=== PATIENT | female | born 1995 | race Caucasian/White ===

== ENCOUNTER 2021-03-19 13:25 | Outpatient (CLI) | payer BC, MEDICAID, SELFPAY ==
[2021-03-19 13:48] VITALS: TEMP 37.2
[2021-03-19 13:49] VITALS: BP 120/68; PULSE 99
[2021-03-19 14:09] VITALS: BP 107/76; PULSE 96
[2021-03-19 14:10] VITALS: BMI 33.7
== END 2021-03-19 14:25 | disposition home or self-care (01) ==
LOC: OPOB 13:42 → OBGYN 13:42
PROVIDERS: PCP Nurse Practitioner Family; Visit Provider Family Medicine
DX: O30.099 Twin pregnancy, unable to determine number of placenta and number of amniotic sacs, unspecified trimester (principal); Z3A.00 Weeks of gestation of pregnancy not specified; O16.9 Unspecified maternal hypertension, unspecified trimester
CPT/HCPCS: 59025; 99211

== ENCOUNTER 2021-03-22 20:50 | Outpatient (CLI) | payer BC, MEDICAID, SELFPAY ==
[2021-03-22] VITALS (16 sets, daily range): BP systolic 118–119; BP diastolic 76–83; PULSE 94–100; RESP 15–16; TEMP 36.7–36.9; O2SAT 94–97; BMI 33.5
== END 2021-03-22 22:45 | disposition home or self-care (01) ==
LOC: OPOB 20:51 → OBGYN 20:51
PROVIDERS: PCP Nurse Practitioner Family; Visit Provider Family Medicine
DX: O26.899 Other specified pregnancy related conditions, unspecified trimester (principal); Z3A.00 Weeks of gestation of pregnancy not specified; R10.9 Unspecified abdominal pain; O16.9 Unspecified maternal hypertension, unspecified trimester
CPT/HCPCS: 59025; 99211

== ENCOUNTER 2021-03-26 08:45 | Outpatient (CLI) | payer BC, MEDICAID, SELFPAY ==
[2021-03-26 08:52] VITALS: BP 141/94; PULSE 101
[2021-03-26 09:11] VITALS: BP 126/86; PULSE 90
[2021-03-26 09:26] VITALS: BP 125/83; PULSE 95
[2021-03-26 10:52] VITALS: BMI 34.0
[2021-03-26 11:07] VITALS: BP 125/83; PULSE 95; RESP 18
== END 2021-03-26 09:30 | disposition home or self-care (01) ==
LOC: OPOB 08:47 → OBGYN 08:49
PROVIDERS: PCP Nurse Practitioner Family; Visit Provider Family Medicine
DX: O30.099 Twin pregnancy, unable to determine number of placenta and number of amniotic sacs, unspecified trimester (principal); Z3A.00 Weeks of gestation of pregnancy not specified
CPT/HCPCS: 59025

== ENCOUNTER 2021-04-02 11:44 | Outpatient (CLI) | payer BC, MEDICAID, SELFPAY ==
[2021-04-02 12:10] VITALS: BP 122/82; PULSE 96
[2021-04-02 12:26] VITALS: RESP 16
[2021-04-02 12:31] VITALS: BMI 34.0
[2021-04-02 12:38] VITALS: BP 115/77; PULSE 97
== END 2021-04-02 12:46 | disposition home or self-care (01) ==
LOC: OPOB 11:53 → OBGYN 11:56
PROVIDERS: PCP Nurse Practitioner Family; Visit Provider Family Medicine
DX: O16.9 Unspecified maternal hypertension, unspecified trimester (principal); O30.099 Twin pregnancy, unable to determine number of placenta and number of amniotic sacs, unspecified trimester; Z3A.00 Weeks of gestation of pregnancy not specified
CPT/HCPCS: 59025; 99211

== ENCOUNTER 2021-04-09 11:04 | Outpatient (CLI) | payer BC, MEDICAID, SELFPAY ==
[2021-04-09 11:14] VITALS: RESP 18
[2021-04-09 11:15] VITALS: BMI 34.5
[2021-04-09 11:21] VITALS: BP 131/98; PULSE 89
[2021-04-09 11:24] VITALS: TEMP 36.4
[2021-04-09 11:40] VITALS: BP 135/94; PULSE 91
[2021-04-09 11:54] VITALS: BP 135/83; PULSE 89
[2021-04-09 11:56] VITALS: BP 135/83; PULSE 89; RESP 18
== END 2021-04-09 11:57 | disposition home or self-care (01) ==
LOC: OPOB 11:06 → OBGYN 11:07
PROVIDERS: PCP Nurse Practitioner Family; Visit Provider Family Medicine
DX: O30.099 Twin pregnancy, unable to determine number of placenta and number of amniotic sacs, unspecified trimester (principal); Z3A.00 Weeks of gestation of pregnancy not specified
CPT/HCPCS: 59025

== ENCOUNTER 2021-04-13 15:08 | Outpatient (CLI) | payer BC, MEDICAID, SELFPAY ==
[2021-04-13 15:10] VITALS: BMI 34.9
[2021-04-13 15:18] VITALS: RESP 16
[2021-04-13 15:22] VITALS: BP 143/94; PULSE 102; TEMP 36.8
[2021-04-13 15:34] VITALS: BP 136/91; PULSE 103
[2021-04-13 16:43] LABS: Urine Creatinine 30 mg/dL (28-217); Urine Protein Random 8 mg/dL
[2021-04-13 16:45] LABS: UPRO/UCREAT Ratio 0.27 mg/mg CR
== END 2021-04-13 15:48 | disposition home or self-care (01) ==
LOC: OPOB 15:10 → OBGYN 15:12
PROVIDERS: PCP Nurse Practitioner Family; Visit Provider Family Medicine
DX: O16.9 Unspecified maternal hypertension, unspecified trimester (principal); Z3A.00 Weeks of gestation of pregnancy not specified
CPT/HCPCS: 59025; 82570; 84156; 99211

== ENCOUNTER 2021-04-16 11:35 | Outpatient (CLI) | payer BC, MEDICAID, SELFPAY ==
[2021-04-16 11:47] VITALS: BP 123/79; PULSE 102; TEMP 36.9
[2021-04-16 12:01] VITALS: BMI 35.2
[2021-04-16 12:02] VITALS: BP 118/77; PULSE 100
== END 2021-04-16 12:15 | disposition home or self-care (01) ==
LOC: OPOB 11:39 → OBGYN 11:40
PROVIDERS: PCP Nurse Practitioner Family; Visit Provider Family Medicine
DX: O30.099 Twin pregnancy, unable to determine number of placenta and number of amniotic sacs, unspecified trimester (principal); Z3A.00 Weeks of gestation of pregnancy not specified; O16.9 Unspecified maternal hypertension, unspecified trimester
CPT/HCPCS: 59025

== ENCOUNTER 2021-04-23 10:56 | Outpatient (CLI) | payer BC, MEDICAID, SELFPAY ==
[2021-04-23 11:00] VITALS: RESP 18; TEMP 36.9
[2021-04-23 11:20] VITALS: BP 138/87; PULSE 84
[2021-04-23 11:35] VITALS: BP 147/96; PULSE 81
[2021-04-23 11:40] VITALS: BP 144/92; PULSE 76
[2021-04-23 12:29] VITALS: BMI 35.2
[2021-04-23 12:43] VITALS: BP 144/92; PULSE 76; RESP 18; TEMP 36.9
== END 2021-04-23 11:45 | disposition home or self-care (01) ==
LOC: OPOB 11:08 → OBGYN 11:09
PROVIDERS: PCP Family Medicine; Visit Provider Family Medicine
DX: O30.099 Twin pregnancy, unable to determine number of placenta and number of amniotic sacs, unspecified trimester (principal); Z3A.00 Weeks of gestation of pregnancy not specified
CPT/HCPCS: 59025; 99211

== ENCOUNTER 2021-04-24 06:05 | Inpatient (IN) | payer BC, MEDICAID, SELFPAY ==
[2021-04-24] VITALS (88 sets, daily range): BP systolic 114–184; BP diastolic 64–112; PULSE 52–90; RESP 15–18; TEMP 35.8–37.4; O2SAT 94–99; BMI 35.2
[2021-04-24] MEDS: morphine 4 mg/mL SDV 1 mL 2 MG IVP (05:29)
[2021-04-24] MEDS: ondansetron 2 mg/ML SDV 2 mL 4 MG IVP ×3 (05:30→21:38)
[2021-04-24 05:31] LABS: Basophils # 0.1 10^3/uL (0.0-0.1); Basophils % 0.9 %; Eosinophils # 0.3 10^3/uL (0.0-0.8); Eosinophils % 2.6 %; Hematocrit 33.4 % (37.0-47.0); Hemoglobin 11.3 g/dL (11.5-15.3); Lymphocytes # 2.9 10^3/uL (0.8-4.8); Lymphocytes % 25.1 %; Mean Corpuscular HGB Conc 33.8 g/dL (30.0-36.0); Mean Corpuscular Hemoglobin 31.4 pg (28.0-34.0); Mean Corpuscular Volume 92.8 fL (81-99); Mean Platelet Volume 9.5 fL (7.4-10.4); Monocytes # 0.7 10^3/uL (0.2-0.9); Monocytes % 6.4 %; Neutrophils # 7.28 10^3/uL (1.8-7.7); Neutrophils % 63.4 %; Nucleated Red Blood Cells % 0.2 %; Platelet Count 276 10^3/cmm (130-400); Red Cell Distribution Width 13.6 % (12.1-15.1); White Blood Count 11.5 10^3/uL (4.0-10.0)
[2021-04-24 05:33] LABS: Add Urine Microscopic? YES; Bilirubin Urine Neg (Negative); Blood Urine Neg (Negative); Glucose Urine UA Norm (Normal); Ketones Urine Negative (Negative); Leukocyte Esterase Urine 2+ (Negative); Nitrate Urine Negative (Negative); Protein Urine Neg (Negative); Sulfosalicylic Acid Urine Negative (Negative); Urine Color Yellow (Yellow); Urobilinogen Urine Norm (Negative); pH Urine 8 (5-7)
[2021-04-24 05:34] LABS: Bacteria Urine 3+ /hpf; Mucus Urine 1+ /hpf; RBC Urine 0-4 /hpf (0-2); Squamous Epithelial Cell Urine 25-40 /hpf (0-5); WBC Urine >100 /hpf (0-5)
[2021-04-24 05:35] LABS: Add Urine Culture? No
[2021-04-24 05:50] LABS: Urine Creatinine 36 mg/dL (28-217); Urine Protein Random 7 mg/dL
[2021-04-24 05:51] LABS: Alanine Aminotransferase 9 U/L (0-33); Albumin Level 3.3 g/dL (3.5-5.2); Alkaline Phosphatase 204 IU/L (35-105); Anion Gap 15.5 (5-19); Aspartate Amino Transferase 19 U/L (0-32); Blood Urea Nitrogen 4 mg/dL (6-20); Calcium 9.1 mg/dL (8.5-10.5); Carbon Dioxide 20 mmol/L (22-29); Chloride 103 mmol/L (98-107); Globulin 2.1 g/dL (1.3-4.6); Glomerular Filtration Rate 150.3 mL/min (90-130); Glucose 76 mg/dL (65-115); Osmolality Calculated 276 mOsm/kg (285-295); Potassium 3.5 mmol/L (3.5-5.1); Sodium 135 mmol/L (136-145); Total Bilirubin 0.5 mg/dL (0.15-1.2); Total Protein 5.4 g/dL (6.6-8.7)
[2021-04-24 05:53] LABS: UPRO/UCREAT Ratio 0.19 mg/mg CR
[2021-04-24] MEDS: hyDRALAzine 20 mg/mL INJ 1 mL 5 MG IVP (06:30)
[2021-04-24] MEDS: lactated ringers 1,000 ML 999 ML IV (06:44)
--- NOTE | 2021-04-24 08:58 | ANES.PAUD2 ---
Pre-Anesthetic Update Pre-Anesthetic Assessment: Date of Surgery/Procedure: 04/24/21 Preop Diagnosis: IUP Proposed Procedure: Operation Date: 04/24/21 08:20 Proposed Procedures p Section(Not Applicable) - Kim Fox MD Any changes to Pre-Anesthetic Assessment?: No Labs Last 48hrs: Laboratory Results - last 48 hr 04/24/21 04/24/21 04/24/21 05:10 05:10 05:20 WBC 11.5 H RBC 3.60 L Hgb 11.3 L Hct 33.4 L MCV 92.8 MCH 31.4 MCHC 33.8 RDW 13.6 Plt Count 276 MPV 9.5 Neut % (Auto) 63.4 Lymph % (Auto) 25.1 [place] % (Auto) 6.4 Eos % (Auto) 2.6 Baso % (Auto) 0.9 Neut # (Auto) 7.28 Lymph # (Auto) 2.9 [place] # (Auto) 0.7 Eos # (Auto) 0.3 Baso # (Auto) 0.1 Nucleated RBC % (a uto) 0.2 Nucleated RBCs # 0.0 Sodium Potassium Chloride Carbon Dioxide Anion Gap BUN Creatinine GFR Calculation Glucose Calculated Osmolal ity Uric Acid Calcium Total Bilirubin AST ALT Alkaline Phosphata se Total Protein Albumin Globulin Urine Color Yellow Urine Appearance Sl cloudy A Urine pH 8 H Ur Specific Gravit y 1.010 Urine Protein Neg Urine Glucose (UA) Norm Urine Ketones Negative Urine Blood Neg Urine Nitrate Negative Urine Bilirubin Neg Prot Sulfosalicyli c Acd Negative Urine Urobilinogen Norm Ur Leukocyte Sarah ase 2+ H Urine RBC 0-4 H Urine WBC >100 H Ur Squamous Epith Cells 25-40 H Amorphous Sediment Not Reportable Urine Bacteria 3+ H Urine Mucus 1+ U Random Total Pro tein 7 Urine Creatinine 36 Protein/Creatinin Ratio 0.19 04/24/21 05:20 WBC RBC Hgb Hct MCV MCH MCHC RDW Plt Count MPV Neut % (Auto) Lymph % (Auto) [place] % (Auto) Eos % (Auto) Baso % (Auto) Neut # (Auto) Lymph # (Auto) [place] # (Auto) Eos # (Auto) Baso # (Auto) Nucleated RBC % (a uto) Nucleated RBCs # Sodium 135 L Potassium 3.5 Chloride 103 Carbon Dioxide 20 L Anion Gap 15.5 BUN 4 L Creatinine 0.5 GFR Calculation 150.3 H Glucose 76 Calculated Osmolal ity 276 L Uric Acid 6.0 H Calcium 9.1 Total Bilirubin 0.5 AST 19 ALT 9 Alkaline Phosphata se 204 H Total Protein 5.4 L Albumin 3.3 L Globulin 2.1 Urine Color Urine Appearance Urine pH Ur Specific Gravit y Urine Protein Urine Glucose (UA) Urine Ketones Urine Blood Urine Nitrate Urine Bilirubin Prot Sulfosalicyli c Acd Urine Urobilinogen Ur Leukocyte Sarah ase Urine RBC Urine WBC Ur Squamous Epith Cells Amorphous Sediment Urine Bacteria Urine Mucus U Random Total Pro tein Urine Creatinine Protein/Creatinin Ratio Vitals: Temperature 97.7 F 04/24/21 06:39 Pulse Rate 84 04/24/21 08:49 Pulse Rhythm 04/24/21 06:25 Pulse Strength 3+ Normal 04/24/21 06:25 Respiratory Rate 15 04/24/21 06:03 Respiratory Effort Non-Labored 04/24/21 06:25 Respiratory Depth Normal 04/24/21 06:25 Respiratory Patter n 04/24/21 06:25 Blood Pressure 140/79 04/24/21 08:49 Oxygen Delivery Me thod 04/24/21 06:25 Exam: Pre-Anes Outpt Exam: alert, oriented x 3, clear to auscultation bilaterally and regular rate & rhythm Cardiac Studies: No Data to Display
[2021-04-24] MEDS: famotidine 20 mg/2 mL INJ IVP (08:59)
[2021-04-24] MEDS: metoclopramide 5 mg/mL SDV 2 mL 10 MG IVP (08:59)
[2021-04-24] MEDS: citric acid-sodium citrate 30 mL UDC PO (08:59)
[2021-04-24] MEDS: lactated ringers 1,000 ML 125 ML IV (09:00)
[2021-04-24] MEDS: carboprost tromethamine 250 mcg/mL Amp IM (11:01)
[2021-04-24] MEDS: miSOPROStol 200 mcg Tablet 800 MCG PR (11:03)
--- NOTE | 2021-04-24 11:41 | PM.OP ---
Operative Report Date of procedure: April 24, 2021 Pre-op Diagnosis: Preeclampsia, severe Post-op diagnosis: same Procedure Done: Primary low transverse section Via Pfannenstiel skin incision Specimens removed/disposition: Twin A vertex female , weight 2820 g, 6 pounds 3-1/2 ounces, Apgars 8 and 9. Twin B complete breech female infant, weight 2435 g, 5 pounds 6 ounces, Apgars 7 and 9. Surgeon: Kim Fox Anesthesia: Other (Spinal) Estimated blood loss (mL): 2,000 IV fluids (mL): 1,500 Urine output (mL): 40 Complications: Intrapartum hemorrhage Condition: stable Disposition: floor Brief History: This is a 25-year-old G2, P1 at 37 weeks gestation with a juancarlos-twin gestation and -induced hypertension controlled with labetalol. She presented to labor and delivery today complaining of intractable severe headache causing nausea and vomiting and not responding to Tylenol. She had minimal response to Zofran and morphine. Her PIH labs were not indicative of proteinuria, but she was diagnosed with severe pre-eclampsia due to intactable headache. Procedure: After informed consent the patient was taken to the OR where spinal anesthesia was administered. She was prepped and draped in normal sterile fashion in dorsal supine position with a left lateral tilt. A Pfannenstiel skin incision was made and carried through sharply to the underlying layer of fascia. The fascia was then grasped with Marco clamps and the underlying rectus muscles were dissected off. The peritoneum was then entered bluntly using a hemostat. The incision site was manually stretched and the bladder blade was inserted. The vesicouterine peritoneum was identified and entered sharply using the Metzenbaums. The bladder flap was then created digitally and the bladder blade was then reinserted. Uterine incision was made in a transverse fashion in the lower uterine segment. Amniotic rupture of membranes was performed using an Allis clamp and revealed a normal amount of clear fluid. Twin A was delivered vertex with bulb suction of the mouth and nares at delivery. The cord was clamped and cut and the infant was handed to the waiting pediatric team. Cord blood was obtained. There was a large amount of uterine bleeding between twin A and twin B. Twin bees amniotic rupture of membrane was performed using an Allis clamp and an average amount of clear amniotic fluid was noted. Twin B was delivered feet first in complete breech presentation using standard breech maneuvers. The infants mouth and nares were suctioned at delivery. The cord was clamped and cut. The infant was handed to the waiting pediatric team. Cord blood was obtained. The placentas were then delivered using fundal pressure. There was a large amount of bleeding from the incision of the uterus and 3 areas were clamped using ring forceps. Uterine incision was then repaired using 0 chromic in a running locked fashion. A second layer of the same suture was used in an imbricating manner. There is a small amount of bleeding on the right lateral aspect and a 1 [id number] suture of 0 chromic was performed there was good hemostasis. The bladder flap was then closed using 4-0 Vicryl in a running fashion. The uterus was returned to the abdomen and irrigation was used to clear the uterus of clots and debris. The uterine incision was reinspected for hemostasis. The peritoneum was then reapproximated using 4-0 Vicryl in a running fashion. The rectus muscles were gently reapproximated using one [id number]-[id number] suture of 4-0 Vicryl. The subfascial tissue was inspected for hemostasis and any small bleeders were coagulated using the Bovie. The sub cutaneous tissue was irrigated and inspected for any small bleeders that were coagulated using the Bovie. The subcutaneous tissue was then reapproximated using 4-0 Vicryl in a running fashion. The skin was then reapproximated using 4-0 Vicryl on a Yuval needle. Steri-Strips and a pressure bandage were applied. The uterus was very firm but several large clots were present vaginally below the drape. The patient was given Cytotec 800 mcg rectally. S was then started on Transexamic acid and also given a dose of Hemabate IM. Mother and infants were doing well after delivery. Sponge instrument and needle counts were correct. Associated Problem List Diagnoses (1) Dichorionic diamniotic twin in third trimester: (2) Hypertension affecting in third trimester: (3) Pre-eclampsia added to pre-existing hypertension: (4) Migraine: (5) with 37 weeks completed gestation:
--- NOTE | 2021-04-24 12:00 | PM.OPHPUD ---
Labor & Delivery H&P Update Date of Procedure: April 24, 2021 Date H&P Performed: 04/20/21 H&P update information: I have reviewed H&P completed within last 30 days, I have examined patient prior to procedure, Changes to prior documentation as noted here and H&P to be scanned into chart Admission Diagnosis: Preop diagnosis: Preeclampsia, severe Planned procedure: Operation Date: 04/24/21 08:20 Proposed Procedures p Section(Not Applicable) - Kim Fox MD Related Problem List Diagnoses (1) with 37 weeks completed gestation: (2) Migraine: (3) Pre-eclampsia added to pre-existing hypertension: (4) Hypertension affecting in third trimester: (5) Dichorionic diamniotic twin in third trimester:
[2021-04-24] MEDS: dextrose 5%-lactated ringers 1,000 ML 75 ML IV ×2 (12:17→22:05)
[2021-04-24] MEDS: magnesium sulfate premix 20 GM/500 ML BAG IV ×2 (12:17→21:38)
[2021-04-24] MEDS: magnesium sulfate premix 4 GM/100 ML PREMIX IV (12:17)
--- NOTE | 2021-04-24 13:15 | PC.NURSE ---
During routine fundal assessment, ernesto care performed and some blood noted at bottom of dressing, this RN cleaned area with washcloth and noticed that blood was oozing from dressing. RN called for assistance and dressing removed. ABD saturated with 5cm long 1cm wide clot noted under steri strips. Dr Fox called and coming to floor. Incision noted to be oozing from pts left side, pressure held with gauze until MD arrival.
[2021-04-24] MEDS: silver nitrate applicator 3 EACH (14:07)
[2021-04-24 14:15] LABS: INR 1.04 (0.8-1.2)
[2021-04-24 14:16] LABS: Fibrinogen 253 mg/dL (174-498); Partial Thromboplastin Time 30.1 SECONDS (23.9-36.7)
[2021-04-24 14:25] LABS: D Dimer 9.03 ug/mIFEU (0-0.59)
--- NOTE | 2021-04-24 14:30 | PC.NURSE ---
Dr Fox arrived to floor. held pressure and evaluated incision. Lidocaine ordered and administered by Dr Fox, incision then opened and assessed. Silver nitrate applied. Dr Fox made decision at 1425 to take pt back to OR to fully open incision and look for bleeding. final assembly and packing supervisor and anesthesia notified.
--- NOTE | 2021-04-24 14:35 | PC.NURSE ---
Pt to OR
--- NOTE | 2021-04-24 14:38 | PC.NURSE ---
Pt moved to OR via bed. Dr Curry and Dr Fox at bedside.
--- NOTE | 2021-04-24 15:25 | PM.OP ---
Operative Report Date of procedure: April 24, 2021 Pre-op Diagnosis: Incisional bleeding Post-op diagnosis: same Procedure Done: Incision exploration Specimens removed/disposition: None Pathology: none sent Surgeon: Kim Fox Anesthesia: General Estimated blood loss (mL): 5 Complications: None Condition: stable Brief History: Approximately 4 hours after her primary section I was notified by nursing of incisional bleeding. She had saturated through the Telfa and peripad under her pressure dressing. Pressure was held to the incision for good 20 minutes but this did not jessica the trickle of blood coming from the incision. She was taken back to the OR for incision exploration. Procedure: After informed consent the patient was taken back to the OR where general anesthesia was administered. She was prepped and draped in normal sterile fashion in dorsal supine position. The skin suture was cut and removed. The subcutaneous suture was then cut and removed. There was a small amount of clot and blood that was wiped away. There was generalized random oozing of blood from the subcutaneous fatty tissue. Areas of bleeding were coagulated using the Bovie. The fascia was checked multiple times for integrity and was fluid tight. There was no bleeding seeping up through the fascia. After excellent hemostasis was obtained the skin was then reapproximated using meredith. Steri-Strips and a pressure bandage with foam tape were applied. Patient was awakened in the OR and went to recovery in stable condition.
--- NOTE | 2021-04-24 15:31 | P.ANESASSM_ITS ---
Pre-Anesthetic Assessment Pre-Anesthetic Assessment: Height/Weight: Height 1.52 m Weight 81.647 kg Temp Pulse Resp BP Pulse Ox 97.7 F 68 16 148/81 97 04/24/21 06:39 04/24/21 14:28 04/24/21 11:55 04/24/21 14:28 04/24/21 13:12 Preop Diagnosis: Preeclampsia, severe Proposed Procedure: Operation Date: 04/24/21 08:20 Proposed Procedures p Section(Not Applicable) - Kim Fox MD Was Beta Mony taken within 24 hours: N/A Was Clonidine taken within 24 hours: N/A Social: Social History: No alcohol and No tobacco Exam: Pre-Anes Outpt Exam: alert, oriented x 3, clear to auscultation bilaterally and regular rate & rhythm Airway: Submandibular: WNL Cervical ROM: WNL MP: 2 Dentition: Full History/ROS: No significant history except as noted Anesthetic Plan: ASA status: 2E Anesthesia: General Other: 4 hrs with contd bleeding from incision Risk of > 500 ml blood loss (7ml/kg in children): No Meds/Allergies Current Medications: Current Medications Generic Name Dose Route Start Last Admin Trade Name Freq PRN Reason Stop Dose Admin Lactated Ringer's 1,000 mls @ 125 m ls/hr 04/24/21 06:15 04/24/21 12:27 Lactated Ringers IV Infused .Q8H JUVE Infusion Tranexamic Acid 1, 000 mg/ 110 mls @ 330 mls /hr 04/24/21 06:03 04/24/21 12:27 Sodium Chloride IV Infused Q30M PRN Infusion BLEEDING Dextrose/Lactated Ringer's 1,000 mls @ 125 m ls/hr 04/24/21 11:45 04/24/21 12:17 Dextrose 5%-Lact ated Ringers IV 75 mls/hr .Q8H JUVE Administration Magnesium Sulfate 20 gm in 500 mls @ 50 mls/hr 04/24/21 11:45 04/24/21 12:17 Magnesium Sulfat e Premix IV 50 mls/hr .Q10H JUVE Administration PFSH Anesthesia Female Reproductive History: : 2 Data Anesthesia CBC & Chem 7: 04/24/21 05:20 04/24/21 05:20 Other Labs: Laboratory Results - last 48 hr 04/24/21 04/24/21 04/24/21 05:10 05:10 05:20 WBC 11.5 H RBC 3.60 L Hgb 11.3 L Hct 33.4 L MCV 92.8 MCH 31.4 MCHC 33.8 RDW 13.6 Plt Count 276 MPV 9.5 Neut % (Auto) 63.4 Lymph % (Auto) 25.1 [place] % (Auto) 6.4 Eos % (Auto) 2.6 Baso % (Auto) 0.9 Neut # (Auto) 7.28 Lymph # (Auto) 2.9 [place] # (Auto) 0.7 Eos # (Auto) 0.3 Baso # (Auto) 0.1 Nucleated RBC % (auto) 0.2 Nucleated RBCs # 0.0 PT INR APTT Fibrinogen Fibrin Degrad Products D-Dimer Sodium Potassium Chloride Carbon Dioxide Anion Gap BUN Creatinine GFR Calculation Glucose Calculated Osmolality Uric Acid Calcium Total Bilirubin AST ALT Alkaline Phosphatase Total Protein Albumin Globulin Urine Color Yellow Urine Appearance Sl cloudy A Urine pH 8 H Ur Specific [place] 1.010 Urine Protein Neg Urine Glucose (UA) Norm Urine Ketones Negative Urine Blood Neg Urine Nitrate Negative Urine Bilirubin Neg Prot Sulfosalicylic Acd Negative Urine Urobilinogen Norm Ur Leukocyte Esterase 2+ H Urine RBC 0-4 H Urine WBC >100 H Ur Squamous Epith Cells 25-40 H Amorphous Sediment Not Reportable Urine Bacteria 3+ H Urine Mucus 1+ U Random Total Protein 7 Urine Creatinine 36 Protein/Creatinin Ratio 0.19 Blood Type Rho(D) Type Antibody Screen Antibody Identification Crossmatch 04/24/21 04/24/21 04/24/21 05:20 05:20 13:35 WBC RBC Hgb Hct MCV MCH MCHC RDW Plt Count MPV Neut % (Auto) Lymph % (Auto) [place] % (Auto) Eos % (Auto) Baso % (Auto) Neut # (Auto) Lymph # (Auto) [place] # (Auto) Eos # (Auto) Baso # (Auto) Nucleated RBC % (auto) Nucleated RBCs # PT 13.90 INR 1.04 APTT 30.1 Fibrinogen 253 Fibrin Degrad Products Pos, 10-40 H D-Dimer 9.03 H Sodium 135 L Potassium 3.5 Chloride 103 Carbon Dioxide 20 L Anion Gap 15.5 BUN 4 L Creatinine 0.5 GFR Calculation 150.3 H Glucose 76 Calculated Osmolality 276 L Uric Acid 6.0 H Calcium 9.1 Total Bilirubin 0.5 AST 19 ALT 9 Alkaline Phosphatase 204 H Total Protein 5.4 L Albumin 3.3 L Globulin 2.1 Urine Color Urine Appearance Urine pH Ur Specific [place] Urine Protein Urine Glucose (UA) Urine Ketones Urine Blood Urine Nitrate Urine Bilirubin Prot Sulfosalicylic Acd Urine Urobilinogen Ur Leukocyte Esterase Urine RBC Urine WBC Ur Squamous Epith Cells Amorphous Sediment Urine Bacteria Urine Mucus U Random Total Protein Urine Creatinine Protein/Creatinin Ratio Blood Type O Negative Rho(D) Type Negative / 0 Antibody Screen Positive Antibody Identification Anti-D Crossmatch See Detail Cardiac Studies: No Data to Display
--- NOTE | 2021-04-24 15:32 | ANE.PACU2 ---
Inpatient post-anesthesia follow up: Airway intact: Yes Vital signs: Temperature 97.7 F Pulse Rate 68 Respiratory Rate 16 Blood Pressure 148/81 Pulse Oximetry 97 Oxygen Delivery Me thod Room Air Oxygen Flow Rate Fraction of Inspir ed Oxygen Hydration adequate: Yes Nausea and vomiting: No Pain level: 2 Mental status: Baseline
--- NOTE | 2021-04-24 15:49 | PM.PN ---
Subjective Subjective: Interval history: I was notified by nursing that the patient had significant bleeding from her incision. About 4 hours postoperative she was noted to have saturated through her dressing. There was a steady trickle coming from the left aspect of the incision. At bedside I numbed the incision with 2% lidocaine with epinephrine and opened up the left aspect of the skin sutures. A decent amount of bleeding continue to ooze from the entire incision at that point and decision was made to take her back to the OR for wound exploration. Vitals/I&O/Wt Last Vital Signs Temp 97.7 F 04/24/21 06:39 Pulse 68 04/24/21 14:28 Resp 16 04/24/21 11:55 BP 148/81 04/24/21 14:28 Pulse Ox 97 04/24/21 13:12 04/24/21 04/24/21 04/24/21 06:59 14:59 22:59 Intake Total 2160 / 2160 Output Total 40 / 40 Balance 2120 / 2120 Weight last 48 hrs Weight 81.647 kg Physical Exam Const: COMMON NORMALS: no acute distress HENMT: COMMON NORMALS: normocephalic HEAD & SCALP: normocephalic Eye: COMMON NORMALS: Equal, round and reactive pupils present and EOMs intact bilaterally PUPIL: Yes Equal, round and reactive pupils present Chest: COMMONS NORMALS: normal inspection of the chest Resp: COMMON NORMALS: normal respiratory effort EFFORT & INSPECTION: Yes Actively coughing (Occasional moist) Cardio: COMMON NORMALS: regular rate and regular rhythm RATE: regular rate RHYTHM: regular rhythm GI: INSPECTION: Yes other (Incision appears intact but there is a trickle of blood continuously coming) Urinary Catheter Management^: Schwarz: Cath Placed During This Visit: yes Urinary Catheter Date of Insertion: 04/24/21 Urinary Catheter Time of Insertion: 09:35 Data : 04/24/21 05:20 04/24/21 05:20 A&P Assessment and plan (1) Postoperative bleeding from incision: The patient was taken back to the OR for incisional exploration and was found to have only superficial subcutaneous oozing. The patient has already awakened from her general anesthesia and is being returned to her room in good condition. Continue routine postoperative and care. Continue magnesium for her severe preeclampsia. Status: Acute Attestations Medical Necessity Statement*: Routine postoperative and care Coding Level of Care Code Acute Commercial Construction Estimator for Chg Fwd Diagnoses Postoperative bleeding from incision
[2021-04-24] MEDS: ketorolac 30 mg/mL INJ IVP (18:02)
[2021-04-25] VITALS (30 sets, daily range): BP systolic 121–159; BP diastolic 76–103; PULSE 65–91; RESP 15–16; TEMP 35.8–36.8
[2021-04-25] MEDS: ketorolac 30 mg/mL INJ IVP ×2 (00:46→06:28)
[2021-04-25 00:52] LABS: Hemoglobin 7.6 g/dL (11.5-15.3); Mean Corpuscular Hemoglobin 31.3 pg (28.0-34.0); Mean Corpuscular Volume 94.7 fL (81-99); Mean Platelet Volume 10.1 fL (7.4-10.4); Platelet Count 206 10^3/cmm (130-400); Red Blood Count 2.43 10^6/uL (4.1-5.3); Red Cell Distribution Width 13.8 % (12.1-15.1); White Blood Count 21.1 10^3/uL (4.0-10.0)
[2021-04-25] MEDS: prenatal vitamin Capsule 1 CAP PO (08:11)
[2021-04-25] MEDS: ferrous sulfate EC 325 mg Tablet PO ×2 (08:11→21:17)
[2021-04-25] MEDS: docusate sodium 100 mg Capsule PO ×2 (08:11→21:17)
[2021-04-25] MEDS: magnesium sulfate premix 20 GM/500 ML BAG IV (08:12)
[2021-04-25] MEDS: ondansetron 2 mg/ML SDV 2 mL 4 MG IVP (11:24)
[2021-04-25] MEDS: HYDROcodone-acetaminophen 5-325 mg Tablet PO ×2 (11:24→22:33)
--- NOTE | 2021-04-25 12:49 | PC.NURSE ---
Schwarz catheter removed. Pt up to bathroom with standby assist, ernesto care performed by pt. Golf ball sized clot passed on toilet. Gown/pad changed. Pt then back to bed, feeling quite dizzy just before reaching bed to lay down, resolved with getting into bed. Once in bed dressing removed from incision, 3/4 saturated with dark red blood, still oozing from left side of incision. Total of 6 steri strips removed and replaced, abd placed over incision to monitor drainage.
--- NOTE | 2021-04-25 14:53 | PC.NURSE ---
PT UP TO BATHROOM TO VOID, VOIDED 800MLS AND DID PERICARE. PT TOLERATED BEING UP WELL, STILL TOLD HER THAT WE WANTED TO HELP HER UP IF SHE NEEDS TO GET UP, PT VOICES UNDERSTANDING. NOTICED DRAINAGE FROM ABD INCISION, ABD DRESSING IS ABOUT 1/2 SATURATED AND STERI-STRIPS ALL PRETTY MUCH SOAKED OFF, THIS SEO CONSULTANT SHOWED MART PIÑA RN PATIENT CARE NURSE AT 1445 AND ABD DRESSING CHANGED. WILL CONTINUE TO MONITOR INCISION CLOSELY, MESSAGE SENT TO DR. SCOTT.
[2021-04-25] MEDS: ibuprofen 800 mg tablet PO ×2 (16:03→21:17)
--- NOTE | 2021-04-25 18:03 | PM.PN ---
Subjective Subjective: Interval history: Postop day #1 doing well. Patient is starving and hoping that she can eat a regular diet. She has been ambulating and passing flatus. She is diuresing extremely well. Her magnesium was stopped around 12 noon. She has only had a few mildly elevated pressures 158/97 was the highest. Vitals/I&O/Wt Last Vital Signs Temp 98.2 F 04/25/21 15:11 Pulse 78 04/25/21 17:14 Resp 16 04/25/21 07:33 BP 128/90 04/25/21 17:14 Pulse Ox 98 04/24/21 15:50 04/25/21 04/25/21 04/25/21 06:59 14:59 22:59 Intake Total 600 / 5562.500 3965 / 3965 Output Total 2305 / 6510 5450 / 5450 700 / 6150 Balance -1705 / -947.500 -1485 / -1485 -700 / -2185 Weight last 48 hrs Weight 81.647 kg Physical Exam Urinary Catheter Management^: Schwarz: Cath Placed During This Visit: yes, but has since been removed by the nurse Reason for Continuing Indwelling Catheter: Decision to DC Catheter Urinary Catheter Date of Insertion: 04/24/21 Urinary Catheter Time of Insertion: 09:35 Date Urinary Catheter Removed: 04/25/21 Time Urinary Catheter Discontinued: 12:10 Data : 04/25/21 00:25 04/24/21 05:20 A&P Assessment and plan (1) Postoperative bleeding from incision: POD#1 incision exploration Nursing notified me that her bandage was again becoming saturated. It was a little over half saturated. When I presented she had a second bandage in place that was one quarter saturated with a clot on top of the skin. Steri-Strips were removed and the area was cleaned with normal saline. Just left of midline there was an area about 2 inches long that continued to ooze serosanguineous fluid. Other areas of the skin have already begun to heal. I am going to change the dressing with an absorbent gauze. I believe this drainage is just coming from the superficial subcutaneous tissue and placing a deeper drain would not be of much benefit. We will perform frequent dressing changes to keep the dressing dry.. Status: Acute (2) Pre-eclampsia added to pre-existing hypertension: Her magnesium has been stopped for approximately 6 hours now. She is diuresing extremely well. Status: Acute (3) Hypertension affecting in third trimester: She has only had mildly elevated blood pressure and has not required any IV labetalol. Continue hypertensive protocol. Status: Acute (4) Dichorionic diamniotic twin in third trimester: Status: Resolved (5) Status post primary low transverse section: POD#1 doing well. Status: Acute Attestations Medical Necessity Statement*: Severe preeclampsia with primary section. Need for close monitoring and routine and postoperative care. Coding Level of Care Code Acute Health Care Legal Assistant for Chg Fwd Diagnoses Postoperative bleeding from incision Pre-eclampsia added to pre-existing hypertension O11.9 Hypertension affecting in third trimester O16.3 Dichorionic diamniotic twin in third trimester O30.043 Status post primary low transverse section Z98.891
[2021-04-26] VITALS (12 sets, daily range): BP systolic 130–162; BP diastolic 69–95; PULSE 81–90; RESP 16–18; TEMP 36.4–37.3
[2021-04-26 07:27] LABS: Hematocrit 21.2 % (37.0-47.0); Hemoglobin 7.6 g/dL (11.5-15.3); Mean Corpuscular HGB Conc 35.8 g/dL (30.0-36.0); Mean Corpuscular Hemoglobin 34.5 pg (28.0-34.0); Mean Corpuscular Volume 96.4 fL (81-99); Mean Platelet Volume 9.6 fL (7.4-10.4); Platelet Count 243 10^3/cmm (130-400); Red Cell Distribution Width 14.3 % (12.1-15.1); White Blood Count 16.8 10^3/uL (4.0-10.0)
--- NOTE | 2021-04-26 08:11 | PM.OBGYPN ---
RATE AND COST ANALYST Subjective Subjective: Interval history: Angeline is feeling much better today. Her bleeding has been minimal. Her pain is been well controlled. Her incisional bleeding has stopped. Her headache is improved. She has been diuresing. She is hoping to go home as soon as possible. Labor: Monitor Mode: External Contraction Pattern: Irregular Status: Category I Vitals/I&O/Wt Last Vital Signs Temp 99.1 F 04/26/21 03:33 Pulse 85 04/26/21 03:40 Resp 18 04/26/21 03:42 BP 130/69 04/26/21 03:40 Pulse Ox 98 04/24/21 15:50 04/25/21 04/26/21 04/26/21 22:59 06:59 14:59 Intake Total 800 / 4765 600 / 5365 Output Total 1300 / 6750 1200 / 7950 Balance -500 / -1985 -600 / -2585 Physical Exam Narrative: EXAM NARRATIVE: She is in no acute distress Lungs are clear auscultation bilaterally Her heart has a regular rate and rhythm Her fundus is below the umbilicus and firm Her dressing is clean, dry and intact. There is no sign of any residual blood on her dressing. Her extremities have trace edema Urinary Catheter Management^: Schwarz: Cath Placed During This Visit: yes, but has since been removed by the nurse Reason for Continuing Indwelling Catheter: Decision to DC Catheter Urinary Catheter Date of Insertion: 04/24/21 Urinary Catheter Time of Insertion: 09:35 Date Urinary Catheter Removed: 04/25/21 Time Urinary Catheter Discontinued: 12:10 Data : 04/26/21 06:30 04/24/21 05:20 A&P Assessment and plan (1) Status post primary low transverse section: Status: Acute (2) Pre-eclampsia added to pre-existing hypertension: She is no longer having symptoms of preeclampsia. Her magnesium was stopped yesterday after 24 hours. Her blood pressure is markedly improved her most recent blood pressure was 130/69. Status: Acute (3) with 37 weeks completed gestation: Status: Acute (4) Postoperative bleeding from incision: Incisional bleeding appears to have completely resolved. Status: Acute Attestations Medical Necessity Statement*: Depending on how the patient does today, she should go home this evening or tomorrow. Coding Level of Care Code Acute Press Tender Star Signal for Chg Fwd Diagnoses Status post primary low transverse section Z98.891 Pre-eclampsia added to pre-existing hypertension O11.9 with 37 weeks completed gestation Z3A.37 Postoperative bleeding from incision
[2021-04-26] MEDS: ibuprofen 800 mg tablet PO ×2 (09:07→15:56)
[2021-04-26] MEDS: docusate sodium 100 mg Capsule PO (09:07)
[2021-04-26] MEDS: ferrous sulfate EC 325 mg Tablet PO (09:07)
[2021-04-26] MEDS: prenatal vitamin Capsule 1 CAP PO (09:07)
[2021-04-26] MEDS: HYDROcodone-acetaminophen 5-325 mg Tablet PO (09:57)
--- NOTE | 2021-04-26 12:58 | PC.NURSE ---
note Visited with this mom of twins. She wants to pump and supplement with formula. She reports pumping every 2-3 hours for 20 min. and is just starting to return some moisture on her nipples. Encouraged faithful pumping to bring her milk in. She has put one of the babies to the breast but is mostly formula feeding. Offered to help her to get babies to the breast or assist her pumping in some way but she thought she was doing well for now. Provided contact information.
--- NOTE | 2021-04-26 16:40 | PM.OBGYDC ---
Discharge Providers [facility] Date of Admission: 04/24/21 06:05 Date of Discharge: 04/26/21 Attending Provider at Admission: Kim Fox MD Attending Provider at Discharge: Kim Fox MD Primary Care Provider: Ozzie Redding MD Diagnoses at Discharge Discharge Diagnosis (1) Status post primary low transverse section: Status: Acute (2) Pre-eclampsia added to pre-existing hypertension: Status: Acute (3) with 37 weeks completed gestation: Status: Acute (4) Postoperative bleeding from incision: Status: Acute Reason for Visit Reason for Visit: migraine Hospital Course Hospital Course The patient is a 25-year-old at 37 weeks estimated gestational age who presented to the hospital with a headache with a known history of gestational hypertension. Previously, the discussion was had with the patient regarding a vaginal delivery versus with a vertex breech baby. She wanted to proceed with a . As result the was performed. The babies were safely delivered. The patient was doing relatively well and began having some persistent oozing from her incision. As result Dr. Fox elected to take the patient back to the OR to evaluate for any potential bleeders that could be addressed and stopped. Fortunately, no significant bleeders were found. Some clot was removed, and the incision was reapproximated. The patient continued to have some drainage from the incision, but fortunately the drainage gradually resolved and was nonexistent by the time the patient left the hospital. She has been passing gas. She has been eating a regular diet for over a day now. Her pain has been well controlled. Her blood pressures have been improving. Physical Exam Narrative: EXAM NARRATIVE: She is in no acute distress Lungs are clear auscultation bilaterally Her heart has a regular rate and rhythm Her fundus is below the umbilicus and firm Her dressing is clean, dry and intact. I removed the dressing and her incision looks good. There is a small amount of serosanguineous fluid and one small portion of the dressing. Her extremities have trace edema Urinary Catheter Management^: Schwarz: Cath Placed During This Visit: yes, but has since been removed by the nurse Reason for Continuing Indwelling Catheter: Decision to DC Catheter Urinary Catheter Date of Insertion: 04/24/21 Urinary Catheter Time of Insertion: 09:35 Date Urinary Catheter Removed: 04/25/21 Time Urinary Catheter Discontinued: 12:10 Discharge Data Data Completed and Pending: Pending at discharge Category Date Time Status Antibody Identifi cation Routine Lab 04/24/21 05:20 Results PRBC [Leukocyte R educed RBC] Routin e Lab 04/24/21 05:20 Results Type and Screen R outine Lab 04/24/21 05:20 Results Labs from last 24 hours 04/26/21 06:30 WBC 16.8 H RBC 2.20 L Hgb 7.6 L Hct 21.2 L MCV 96.4 MCH 34.5 H MCHC 35.8 RDW 14.3 Plt Count 243 MPV 9.6 Vitals: Last Vital Signs Temp 97.5 F L 04/26/21 15:56 Pulse 88 04/26/21 15:57 Resp 18 04/26/21 15:57 BP 144/94 04/26/21 15:57 Pulse Ox 98 04/24/21 15:50 Discharge Plan Discharge Patient Disposition: Home Condition: Stable Prescriptions: New ibuprofen 800 mg Tablet 800 mg PO TID PRN (Reason: Pain, Mild) Qty: 45 RF: 0 hydrocodone-acetaminophen 5-325 mg Tablet 1 - 2 tab PO Q4H PRN (Reason: Moderate To Severe Pain) Qty: 30 RF: 0 DOK 100 mg Capsule 100 mg PO BID Qty: 14 RF: 0 Continued labetalol 100 mg Tablet 100 mg PO BID RF: 0 1 tab PO DAILY RF: 0 Discharge Orders: Discharge Order (Routine); Ordered 04/26/21 Ordered By: Ozzie Redding Referrals: Ozzie Redding MD [Primary Care Provider] - 7-10 days Discharge Diet: Usual diet Discharge Activity: Limit activity as instructed Patient Instructions: Opioid Safety Discharge Attestations [facility] Time Spent in Discharge Care*: less than 30 min Specific Discharge Activities: Specific discharge activities: educating patient and educating and/or supporting family/caregiver Coding Level of Care Code Acute Press Tender Incendiary Grenade for Chg Fwd Diagnoses Status post primary low transverse section Z98.891 Pre-eclampsia added to pre-existing hypertension O11.9 with 37 weeks completed gestation Z3A.37 Postoperative bleeding from incision
--- NOTE | 2021-04-26 18:12 | PC.NURSE ---
[address] Redding of vital signs. Orders received to proceed with discharge.
== END 2021-04-26 18:00 | disposition home or self-care (01) | DRG 787 ==
LOC: OPOB 06:05 → OBGYN 06:05
PROVIDERS: Admitting Provider Family Medicine; PCP Family Medicine; Visit Provider Family Medicine
PROC: 10D00Z1 Extraction of Products of Conception, Low, Open Approach (ICD-10-PCS; CPT 59514; principal; 2021-04-24 08:00)
DX: O11.4 Pre-existing hypertension with pre-eclampsia, complicating childbirth (principal); O99.354 Diseases of the nervous system complicating childbirth; L76.22 Postprocedural hemorrhage of skin and subcutaneous tissue following other procedure; G43.019 Migraine without aura, intractable, without status migrainosus; O30.043 Twin pregnancy, dichorionic/diamniotic, third trimester; Z3A.37 37 weeks gestation of pregnancy; Z37.2 Twins, both liveborn; O67.8 Other intrapartum hemorrhage; Y83.8 Other surgical procedures as the cause of abnormal reaction of the patient, or of later complication, without mention of misadventure at the time of the procedure
CPT/HCPCS: 12345; 36415; 51702; 59025; 59409; 80053; 80500; 81001; 82570; 84156; 84550; 85025; 85027; 85362; 85378; 85384; 85610; 85730; 86850; 86870; 86900; 86920; 96372; 96374; 96375; 99211; J0360; J0690; J1100; J1885; J2270; J2274; J2370; J2405; J2704; J2765; J3010; J3475; J3490; J7030